=== PATIENT | male | born 1940 | race Hispanic/Latino ===

== ENCOUNTER 2022-03-14 07:19 | Inpatient (IN) | payer MEDICARE ==
[2022-03-13 10:57] LABS: BASOPHILS # (AUTO) 0.1 (0.0-0.1); BASOPHILS % 0.9 % (0.0-1.0); EOSINOPHILS # (AUTO) 0.3 (0.0-0.4); EOSINOPHILS % 3.8 % (0.0-6.0); HEMATOCRIT 36.6 % (38.2-49.6); HEMOGLOBIN 11.8 g/dL (14.0-18.0); LYMPHOCYTES # (AUTO) 1.2 (1.0-3.2); LYMPHOCYTES % 18.3 % (18.0-39.1); MEAN CORPUSCULAR HEMOGLOBIN 28.9 pg (28-32); MEAN CORPUSCULAR HGB CONC 32.2 g/dL (31-35); MEAN CORPUSCULAR VOLUME 89.5 fL (81-99); MONOCYTES # (AUTO) 0.4 (0.2-0.8); MONOCYTES % 5.7 % (4.4-11.3); NEUTROPHILS # (AUTO) 4.7 (2.1-6.9); PLATELET COUNT 207 x10e3/uL (140-360); RED BLOOD COUNT 4.09 x10e6/uL (4.3-5.7); RED CELL DISTRIBUTION WIDTH 13.2 % (11.7-14.4)
[2022-03-13 11:16] LABS: ANION GAP 14.5 mmol/L (8-16); CREATININE, SERUM 0.98 mg/dL (0.72-1.25); POTASSIUM 3.5 mmol/L (3.5-5.1)
[~2022-03-14] VITALS: Ht 180.3 cm; Wt 117.0 kg
[~2022-03-14 07:19] MED LIST: ATORVASTATIN CA20 MG PO; FLOMAX0.4 MG PO; GLIPIZIDE5 MG PO; LOSARTAN POTASS50 MG PO; METOPROLOL SUCC25 MG PO
[2022-03-14] MEDS ORDERED: FLUCONAZOLE 200 MG/100 ML 100 ML IV ONE (07:45)
[2022-03-14] MEDS ORDERED: CEFTRIAXONE 1 GM VIAL ONE (07:45)
[2022-03-14] MEDS ORDERED: GENTAMICIN 80MG/NS 100 ML 200 ML IV ONE (07:45)
[2022-03-14] MEDS ORDERED: SODIUM CHLORIDE 0.9% 1000ML 1,000 ML ONE (07:45)
[2022-03-14] MEDS ORDERED: B&O 60MG R/S 60 MG SUPP PR ONE (08:39)
[2022-03-14] MEDS ORDERED: IOPAMIDOL 610MG/1ML 300 MG/ML VIAL IV ONE (08:39)
[2022-03-14] MEDS ORDERED: POVIDONE IODINE 0.05% 0.05 % ML PO ONE (09:04)
[2022-03-14] MEDS ORDERED: LIDOCAINE HCL 2% LOCAL INJ 5 ML SDV VIAL INJ ONE (09:04)
[2022-03-14] MEDS ORDERED: ONDANSETRON HCL INJ 2MG/ML 2ML 2 MG/ML VIAL ONE ×2 (09:04→12:20)
[2022-03-14] MEDS ORDERED: SEVOFLURANE INHAL SOLN 250 ML PEN BTL ONE (09:04)
[2022-03-14] MEDS ORDERED: FUROSEMIDE INJ 10 MG/ML 4 ML VIAL ONE (09:04)
[2022-03-14] MEDS ORDERED: PROPOFOL IV EMULSION 10 MG/ML 20 ML VIAL ONE (09:04)
[2022-03-14] MEDS ORDERED: FENTANYL CITRATE/PF 100MCG/2 ML INJ ONE (09:39)
[2022-03-14] MEDS ORDERED: Morphine 4mg INJECTION 4 MG/ML INJ ONE (12:20)
[2022-03-14] MEDS ORDERED: HYDROMORPHONE 1MG/1ML INJ ONE (12:27)
[2022-03-14] MEDS ORDERED: HYDRALAZINE HCL 20 MG/ML VIAL ONE (12:39)
[2022-03-14] MEDS ORDERED: PROMETHAZINE HCL (IM) 25 MG/ML VIAL IM ONE (12:55)
[2022-03-14] MEDS ORDERED: PHENAZOPYRIDINE HCL 100 MG TAB PO PRN (13:30)
[2022-03-14] MEDS ORDERED: B&O 60MG R/S 60 MG SUPP PR PRN (13:30)
[2022-03-14] MEDS ORDERED: ACETAMINOPHEN/CODEINE 300MG - 30MG TAB PO PRN (13:30)
[2022-03-14] MEDS ORDERED: DIPHENHYDRAMINE HCL 25 MG CAP PO PRN (13:30)
[2022-03-14] MEDS ORDERED: ONDANSETRON HCL INJ 2MG/ML 2ML 2 MG/ML VIAL IV PRN (13:30)
[2022-03-14 14:07] VITALS: BP 170/96
[2022-03-14 14:58] LABS: BASOPHILS % 0.3 % (0.0-1.0); EOSINOPHILS # (AUTO) 0.1 (0.0-0.4); EOSINOPHILS % 1.1 % (0.0-6.0); HEMATOCRIT 38.3 % (38.2-49.6); HEMOGLOBIN 12.2 g/dL (14.0-18.0); LYMPHOCYTES % 8.8 % (18.0-39.1); MEAN CORPUSCULAR HGB CONC 31.9 g/dL (31-35); MEAN CORPUSCULAR VOLUME 91.2 fL (81-99); MONOCYTES # (AUTO) 0.5 (0.2-0.8); MONOCYTES % 4.9 % (4.4-11.3); NEUTROPHILS # (AUTO) 9.3 (2.1-6.9); NEUTROPHILS % 84.4 % (38.7-80.0); PLATELET COUNT 183 x10e3/uL (140-360); RED CELL DISTRIBUTION WIDTH 13.3 % (11.7-14.4)
[2022-03-14 15:21] LABS: ANION GAP 18.5 mmol/L (8-16); CALCIUM 8.3 mg/dL (8.4-10.2); CREATININE, SERUM 0.97 mg/dL (0.72-1.25); POTASSIUM 3.5 mmol/L (3.5-5.1)
[2022-03-14 16:00] VITALS: BP 155/83
[2022-03-14 16:40] VITALS: BP 155/83
[2022-03-14] MEDS ORDERED: DOCUSATE SODIUM 100 MG CAP PO SCH (17:00)
[2022-03-14] MEDS: SODIUM CHLORIDE 0.9% 1000ML 1,000 ML IV SCH (17:00)
[2022-03-14 20:00] VITALS: BP 158/81
[2022-03-14] MEDS: DOCUSATE SODIUM 100 MG CAP PO SCH (20:21)
[2022-03-14 21:00] VITALS: BP 158/81
[2022-03-15] VITALS (8 sets, daily range): BP systolic 150–184; BP diastolic 77–88
[2022-03-15 07:07] LABS: BASOPHILS # (AUTO) 0.1 (0.0-0.1); BASOPHILS % 0.6 % (0.0-1.0); EOSINOPHILS # (AUTO) 0.2 (0.0-0.4); EOSINOPHILS % 1.7 % (0.0-6.0); HEMATOCRIT 35.5 % (38.2-49.6); LYMPHOCYTES # (AUTO) 1.2 (1.0-3.2); LYMPHOCYTES % 12.8 % (18.0-39.1); MEAN CORPUSCULAR HEMOGLOBIN 29.4 pg (28-32); MEAN CORPUSCULAR HGB CONC 33.8 g/dL (31-35); MONOCYTES # (AUTO) 0.9 (0.2-0.8); MONOCYTES % 9.1 % (4.4-11.3); NEUTROPHILS % 75.5 % (38.7-80.0); PLATELET COUNT 187 x10e3/uL (140-360); RED BLOOD COUNT 4.08 x10e6/uL (4.3-5.7); RED CELL DISTRIBUTION WIDTH 13.6 % (11.7-14.4)
[2022-03-15 07:37] LABS: ANION GAP 18.7 mmol/L (8-16); CALCIUM 8.2 mg/dL (8.4-10.2); CREATININE, SERUM 1.08 mg/dL (0.72-1.25); POTASSIUM 3.7 mmol/L (3.5-5.1)
[2022-03-15] MEDS: DOCUSATE SODIUM 100 MG CAP PO SCH ×2 (09:00→21:00)
[2022-03-15] MEDS: SODIUM CHLORIDE 0.9% 1000ML 1,000 ML IV SCH (09:30)
[2022-03-15] MEDS ORDERED: HYDRALAZINE HCL 20 MG/ML VIAL IV PRN (09:45)
[2022-03-15] MEDS ORDERED: DEXTROSE 50% SYRINGE 50 ML IV PRN (09:45)
[2022-03-15] MEDS: FLUCONAZOLE 200 MG/100 ML 100 ML IV SCH (10:00)
[2022-03-15] MEDS ORDERED: ONDANSETRON HCL INJ 2MG/ML 2ML 2 MG/ML VIAL IV PRN (10:00)
[2022-03-15] MEDS: TAMSULOSIN HCL 0.4 MG CAP PO SCH (10:30)
[2022-03-15] MEDS ORDERED: NIFEDIPINE CR 30 MG TAB PO ONE (10:30)
[2022-03-15] MEDS: METOPROLOL SUCCINATE 25 MG TAB XL PO SCH ×2 (10:52→17:54)
[2022-03-15] MEDS: INSULIN LISPRO 100 UNIT/1 ML 3ML VIAL SQ SCH ×3 (11:30→21:00)
[2022-03-15] MEDS: ATORVASTATIN 20 MG TAB PO SCH (21:00)
[2022-03-16] VITALS (8 sets, daily range): BP systolic 127–157; BP diastolic 71–84
[2022-03-16 05:23] LABS: BASOPHILS % 0.5 % (0.0-1.0); EOSINOPHILS # (AUTO) 0.2 (0.0-0.4); EOSINOPHILS % 2.8 % (0.0-6.0); HEMATOCRIT 31.1 % (38.2-49.6); HEMOGLOBIN 10.7 g/dL (14.0-18.0); LYMPHOCYTES # (AUTO) 1.2 (1.0-3.2); LYMPHOCYTES % 16.4 % (18.0-39.1); MEAN CORPUSCULAR HGB CONC 34.4 g/dL (31-35); MEAN CORPUSCULAR VOLUME 84.3 fL (81-99); MONOCYTES # (AUTO) 0.6 (0.2-0.8); MONOCYTES % 7.3 % (4.4-11.3); NEUTROPHILS # (AUTO) 5.5 (2.1-6.9); NEUTROPHILS % 72.5 % (38.7-80.0); PLATELET COUNT 190 x10e3/uL (140-360); RED BLOOD COUNT 3.69 x10e6/uL (4.3-5.7); RED CELL DISTRIBUTION WIDTH 13.5 % (11.7-14.4)
[2022-03-16] MEDS: SODIUM CHLORIDE 0.9% 1000ML 1,000 ML IV SCH (05:30)
[2022-03-16] MEDS: NIFEDIPINE CR 30 MG TAB PO SCH ×2 (05:31→09:05)
[2022-03-16 05:40] LABS: ANION GAP 16.3 mmol/L (8-16); CALCIUM 8.2 mg/dL (8.4-10.2); CREATININE, SERUM 0.99 mg/dL (0.72-1.25); POTASSIUM 3.3 mmol/L (3.5-5.1)
[2022-03-16] MEDS: INSULIN LISPRO 100 UNIT/1 ML 3ML VIAL SQ SCH ×4 (08:00→21:00)
[2022-03-16] MEDS: TAMSULOSIN HCL 0.4 MG CAP PO SCH (09:04)
[2022-03-16] MEDS: LOSARTAN POTASSIUM 25 MG TAB PO SCH (09:04)
[2022-03-16] MEDS: GLIPIZIDE 5 MG TAB PO SCH (09:05)
[2022-03-16] MEDS: METOPROLOL SUCCINATE 25 MG TAB XL PO SCH ×2 (09:06→17:00)
[2022-03-16] MEDS: DOCUSATE SODIUM 100 MG CAP PO SCH ×2 (09:06→21:00)
[2022-03-16] MEDS ORDERED: POTASSIUM CHLORIDE 10MEQ EA PO ONE (10:00)
[2022-03-16] MEDS: FLUCONAZOLE 200 MG/100 ML 100 ML IV SCH (10:30)
[2022-03-16] MEDS ORDERED: IOPAMIDOL 370 MG/ML 100 ML INFUS..BTL INJ ONE (14:43)
[2022-03-16] MEDS ORDERED: SODIUM CHLORIDE 0.9% 100 ML ONE (14:43)
[2022-03-16] MEDS: ATORVASTATIN 20 MG TAB PO SCH (21:00)
[2022-03-17] VITALS (8 sets, daily range): BP systolic 135–155; BP diastolic 65–75
[2022-03-17 05:46] LABS: BASOPHILS # (AUTO) 0.1 (0.0-0.1); BASOPHILS % 0.7 % (0.0-1.0); EOSINOPHILS # (AUTO) 0.3 (0.0-0.4); EOSINOPHILS % 4.6 % (0.0-6.0); HEMATOCRIT 32.2 % (38.2-49.6); HEMOGLOBIN 10.9 g/dL (14.0-18.0); LYMPHOCYTES # (AUTO) 1.2 (1.0-3.2); LYMPHOCYTES % 17.2 % (18.0-39.1); MEAN CORPUSCULAR HGB CONC 33.9 g/dL (31-35); MEAN CORPUSCULAR VOLUME 85.6 fL (81-99); MONOCYTES # (AUTO) 0.5 (0.2-0.8); MONOCYTES % 6.9 % (4.4-11.3); PLATELET COUNT 203 x10e3/uL (140-360); RED BLOOD COUNT 3.76 x10e6/uL (4.3-5.7); RED CELL DISTRIBUTION WIDTH 13.6 % (11.7-14.4)
[2022-03-17 06:12] LABS: ANION GAP 11.5 mmol/L (8-16); CALCIUM 8.3 mg/dL (8.4-10.2); CREATININE, SERUM 0.95 mg/dL (0.72-1.25); POTASSIUM 3.5 mmol/L (3.5-5.1)
[2022-03-17] MEDS: INSULIN LISPRO 100 UNIT/1 ML 3ML VIAL SQ SCH ×4 (08:15→20:10)
[2022-03-17] MEDS: GLIPIZIDE 5 MG TAB PO SCH (08:15)
[2022-03-17] MEDS: NIFEDIPINE CR 30 MG TAB PO SCH (08:51)
[2022-03-17] MEDS: TAMSULOSIN HCL 0.4 MG CAP PO SCH (08:51)
[2022-03-17] MEDS: METOPROLOL SUCCINATE 25 MG TAB XL PO SCH ×2 (08:51→18:00)
[2022-03-17] MEDS: DOCUSATE SODIUM 100 MG CAP PO SCH ×2 (08:51→20:50)
[2022-03-17] MEDS: LOSARTAN POTASSIUM 25 MG TAB PO SCH (08:52)
[2022-03-17] MEDS ORDERED: ONDANSETRON HCL 4 MG ORAL DISINTEGRATING TAB PO PRN (09:30)
[2022-03-17] MEDS: FLUCONAZOLE 200 MG/100 ML 100 ML IV SCH (10:00)
[2022-03-17] MEDS: ATORVASTATIN 20 MG TAB PO SCH (20:51)
[2022-03-18] VITALS: BP 133/76
[2022-03-18 04:00] VITALS: BP 141/73
[2022-03-18 05:35] LABS: BASOPHILS # (AUTO) 0.1 (0.0-0.1); BASOPHILS % 0.7 % (0.0-1.0); EOSINOPHILS # (AUTO) 0.4 (0.0-0.4); EOSINOPHILS % 4.6 % (0.0-6.0); HEMATOCRIT 35.3 % (38.2-49.6); LYMPHOCYTES # (AUTO) 1.3 (1.0-3.2); LYMPHOCYTES % 15.9 % (18.0-39.1); MEAN CORPUSCULAR HEMOGLOBIN 29.5 pg (28-32); MEAN CORPUSCULAR VOLUME 86.7 fL (81-99); MONOCYTES # (AUTO) 0.5 (0.2-0.8); MONOCYTES % 5.7 % (4.4-11.3); NEUTROPHILS # (AUTO) 6.1 (2.1-6.9); NEUTROPHILS % 72.7 % (38.7-80.0); PLATELET COUNT 237 x10e3/uL (140-360); RED BLOOD COUNT 4.07 x10e6/uL (4.3-5.7); RED CELL DISTRIBUTION WIDTH 13.6 % (11.7-14.4)
[2022-03-18 06:13] LABS: ANION GAP 12.5 mmol/L (8-16); CREATININE, SERUM 1.04 mg/dL (0.72-1.25); POTASSIUM 3.5 mmol/L (3.5-5.1)
[2022-03-18] MEDS: INSULIN LISPRO 100 UNIT/1 ML 3ML VIAL SQ SCH ×3 (07:30→16:30)
[2022-03-18] MEDS: GLIPIZIDE 5 MG TAB PO SCH (07:46)
[2022-03-18 08:27] VITALS: BP 111/59
[2022-03-18] MEDS: DOCUSATE SODIUM 100 MG CAP PO SCH (08:44)
[2022-03-18] MEDS: LOSARTAN POTASSIUM 25 MG TAB PO SCH (08:45)
[2022-03-18] MEDS: TAMSULOSIN HCL 0.4 MG CAP PO SCH (08:45)
[2022-03-18] MEDS: NIFEDIPINE CR 30 MG TAB PO SCH (08:46)
[2022-03-18] MEDS: METOPROLOL SUCCINATE 25 MG TAB XL PO SCH ×2 (08:46→16:30)
[2022-03-18] MEDS ORDERED: POTASSIUM CHLORIDE 10MEQ EA PO ONE (09:30)
[2022-03-18] MEDS ORDERED: FUROSEMIDE INJ 10 MG/ML 4 ML VIAL IV ONE (09:30)
[2022-03-18] MEDS ORDERED: FLUCONAZOLE 100 MG TAB PO SCH (10:00)
[2022-03-18 11:53] VITALS: BP 133/66
[2022-03-18 16:09] VITALS: BP 132/73
== END 2022-03-18 17:37 | disposition home or self-care (01) | DRG 713 ==
LOC: OR 07:19 → PACU V 13:19 → MED/SURG 14:07
PROVIDERS: ADMIT Internal Medicine; ATTEND Internal Medicine
PROC: 0V508ZZ Destruction of Prostate, Via Natural or Artificial Opening Endoscopic (ICD-10-PCS; principal; 2022-03-14 09:46)
PROC: BT141ZZ Fluoroscopy of Kidneys, Ureters and Bladder using Low Osmolar Contrast (ICD-10-PCS; 2022-03-14 09:46)
DX: N40.1 Benign prostatic hyperplasia with lower urinary tract symptoms (principal); B37.49 Other urogenital candidiasis; L03.314 Cellulitis of groin; T85.79XA Infection and inflammatory reaction due to other internal prosthetic devices, implants and grafts, initial encounter; N13.8 Other obstructive and reflux uropathy; I83.009 Varicose veins of unspecified lower extremity with ulcer of unspecified site; N32.3 Diverticulum of bladder; I89.0 Lymphedema, not elsewhere classified; I10 Essential (primary) hypertension; E78.5 Hyperlipidemia, unspecified; E11.9 Type 2 diabetes mellitus without complications; Z87.820 Personal history of traumatic brain injury; Z90.49 Acquired absence of other specified parts of digestive tract; E66.9 Obesity, unspecified; N28.89 Other specified disorders of kidney and ureter; Z87.891 Personal history of nicotine dependence; Z68.35 Body mass index [BMI] 35.0-35.9, adult; Z20.822 Contact with and (suspected) exposure to COVID-19
CPT/HCPCS: 36415; 71046; 74178; 74420; 80048; 82948; 83735; 85025; 88304; 88305; 93005; 94799; C1758; J0360; J0696; J1170; J1450; J1580; J1940; J2001; J2270; J2405; J2543; J2550; J3010; J7030; J7050; Q9967

== ENCOUNTER 2022-06-30 10:28 | Inpatient (IN) | payer MEDICARE ==
[2022-06-27 10:42] LABS: BASOPHILS % 0.7 % (0.0-1.0); EOSINOPHILS # (AUTO) 0.2 (0.0-0.4); EOSINOPHILS % 3.5 % (0.0-6.0); HEMATOCRIT 37.3 % (38.2-49.6); HEMOGLOBIN 11.5 g/dL (14.0-18.0); LYMPHOCYTES % 17.5 % (18.0-39.1); MEAN CORPUSCULAR HEMOGLOBIN 27.8 pg (28-32); MEAN CORPUSCULAR HGB CONC 30.8 g/dL (31-35); MEAN CORPUSCULAR VOLUME 90.3 fL (81-99); MONOCYTES # (AUTO) 0.4 (0.2-0.8); MONOCYTES % 5.9 % (4.4-11.3); NEUTROPHILS # (AUTO) 4.3 (2.1-6.9); NEUTROPHILS % 72.1 % (38.7-80.0); PLATELET COUNT 146 x10e3/uL (140-360); RED BLOOD COUNT 4.13 x10e6/uL (4.3-5.7); RED CELL DISTRIBUTION WIDTH 13.5 % (11.7-14.4)
[2022-06-27 11:03] LABS: ALANINE AMINOTRANSFERASE 12 IU/L (0-55); ALBUMIN 3.4 g/dL (3.5-5.0); ALBUMIN/GLOBULIN RATIO 1.3 (0.8-2.0); ALKALINE PHOSPHATASE 77 IU/L (40-150); ANION GAP 11.7 mmol/L (8-16); BLOOD UREA NITROGEN 13 mg/dL (7-26); BUN/CREATININE RATIO 13 (6-25); CALCIUM 8.8 mg/dL (8.4-10.2); CARBON DIOXIDE 26 mmol/L (22-29); CHLORIDE 109 mmol/L (98-107); CREATININE, SERUM 1.02 mg/dL (0.72-1.25); GLUCOSE 99 mg/dL (74-118); POTASSIUM 3.7 mmol/L (3.5-5.1); SODIUM 143 mmol/L (136-145)
[~2022-06-30] VITALS: Ht 180.3 cm; Wt 125.2 kg
[~2022-06-30 10:28] MED LIST changes: +AUGMENTIN 500-1 EACH PO; +FINASTERIDE5 MG PO
[2022-06-30] MEDS ORDERED: CEFAZOLIN SODIUM 2 GM ONE (11:36)
[2022-06-30] MEDS ORDERED: SODIUM CHLORIDE 0.9% 100 ML ONE (12:29)
[2022-06-30] MEDS ORDERED: IOPAMIDOL 610MG/1ML 300 MG/ML VIAL IV ONE (13:15)
[2022-06-30] MEDS ORDERED: FENTANYL CITRATE/PF 100MCG/2 ML INJ ONE (13:27)
[2022-06-30] MEDS ORDERED: NALOXONE HCL INJ 0.4 MG/ML AMP IV PRN (13:30)
[2022-06-30] MEDS ORDERED: DIPHENHYDRAMINE HCL INJ 50 MG/ML VIAL IM PRN (13:30)
[2022-06-30] MEDS ORDERED: MORPHINE SULFATE 1 MG/ML 30ML PCA IV PRN (13:30)
[2022-06-30] MEDS ORDERED: ONDANSETRON HCL INJ 2MG/ML 2ML 2 MG/ML VIAL IV PRN (13:30)
[2022-06-30] MEDS: SODIUM CHLORIDE 0.9% 250ML IRRIG IR SCH ×3 (13:30→20:27)
[2022-06-30] MEDS: SODIUM CHLORIDE 0.9% 1000ML 1,000 ML IV SCH ×2 (13:30→21:31)
[2022-06-30] MEDS ORDERED: MANNITOL 20 % 500 ML BAG IV ONE (15:58)
[2022-06-30] MEDS ORDERED: ONDANSETRON HCL INJ 2MG/ML 2ML 2 MG/ML VIAL ONE (17:30)
[2022-06-30] MEDS ORDERED: GLYCOPYRROLATE INJ 0.2 MG/ML VIAL ONE (17:30)
[2022-06-30] MEDS ORDERED: POVIDONE IODINE 0.05% 0.05 % ML PO ONE (17:30)
[2022-06-30] MEDS ORDERED: DEXAMETHASONE SOD PHOS INJ 4 MG/ML SDV ONE (17:30)
[2022-06-30] MEDS ORDERED: PROPOFOL IV EMULSION 10 MG/ML 20 ML VIAL ONE (17:30)
[2022-06-30] MEDS ORDERED: ROCURONIUM BROMIDE 10 MG/ML 5ML VIAL IV ONE (17:30)
[2022-06-30] MEDS ORDERED: PHENYLEPHRINE HCL 1% 10 MG/ML VIAL ONE (17:30)
[2022-06-30] MEDS ORDERED: HYDRALAZINE HCL 20 MG/ML VIAL ONE (17:30)
[2022-06-30] MEDS ORDERED: LIDOCAINE HCL 2% LOCAL INJ 5 ML SDV VIAL INJ ONE (17:30)
[2022-06-30] MEDS ORDERED: NEOSTIGMINE 1 MG/ML 10ML VIAL ONE (17:30)
[2022-06-30] MEDS ORDERED: SEVOFLURANE INHAL SOLN 250 ML PEN BTL ONE (17:30)
[2022-06-30] MEDS ORDERED: LABETALOL HCL 5 MG/ML 20ML VIAL ONE (17:30)
[2022-06-30] MEDS ORDERED: MORPHINE SULFATE 1 MG/ML 30ML PCA ONE (17:50)
[2022-06-30 18:00] LABS: BASOPHILS % 0.2 % (0.0-1.0); EOSINOPHILS # (AUTO) 0.1 (0.0-0.4); EOSINOPHILS % 0.8 % (0.0-6.0); HEMATOCRIT 40.9 % (38.2-49.6); HEMOGLOBIN 12.5 g/dL (14.0-18.0); LYMPHOCYTES # (AUTO) 1.3 (1.0-3.2); LYMPHOCYTES % 13.1 % (18.0-39.1); MEAN CORPUSCULAR HEMOGLOBIN 28.2 pg (28-32); MEAN CORPUSCULAR HGB CONC 30.6 g/dL (31-35); MEAN CORPUSCULAR VOLUME 92.3 fL (81-99); MONOCYTES # (AUTO) 0.4 (0.2-0.8); MONOCYTES % 3.7 % (4.4-11.3); NEUTROPHILS % 81.5 % (38.7-80.0); PLATELET COUNT 130 x10e3/uL (140-360); RED BLOOD COUNT 4.43 x10e6/uL (4.3-5.7); RED CELL DISTRIBUTION WIDTH 13.6 % (11.7-14.4)
[2022-06-30 18:07] LABS: ANION GAP 12.3 mmol/L (8-16); CALCIUM 8.3 mg/dL (8.4-10.2); CREATININE, SERUM 1.01 mg/dL (0.72-1.25); POTASSIUM 3.3 mmol/L (3.5-5.1)
[2022-06-30] MEDS ORDERED: SUGAMMADEX SODIUM 200 MG/2 ML VIAL IV ONE (18:10)
[2022-06-30] MEDS: ACETAMINOPHEN 1000 MG/100 ML IV PRN (19:13)
[2022-06-30 19:31] VITALS: BP 179/79
[2022-06-30 19:52] VITALS: BP 179/79
[2022-06-30 20:00] VITALS: BP 169/78
[2022-06-30 21:00] VITALS: BP 170/78
[2022-06-30 22:00] VITALS: BP 155/70
[2022-06-30 23:00] VITALS: BP 170/70
[2022-07-01] VITALS (39 sets, daily range): BP systolic 148–205; BP diastolic 62–138
[2022-07-01] MEDS: SODIUM CHLORIDE 0.9% 250ML IRRIG IR SCH ×3 (01:06→09:30)
[2022-07-01 05:39] LABS: BASOPHILS % 0.3 % (0.0-1.0); HEMATOCRIT 36.4 % (38.2-49.6); LYMPHOCYTES # (AUTO) 0.4 (1.0-3.2); LYMPHOCYTES % 5.2 % (18.0-39.1); MEAN CORPUSCULAR HEMOGLOBIN 27.8 pg (28-32); MEAN CORPUSCULAR VOLUME 84.5 fL (81-99); MONOCYTES # (AUTO) 0.5 (0.2-0.8); MONOCYTES % 7.2 % (4.4-11.3); NEUTROPHILS # (AUTO) 6.6 (2.1-6.9); NEUTROPHILS % 86.9 % (38.7-80.0); PLATELET COUNT 135 x10e3/uL (140-360); RED BLOOD COUNT 4.31 x10e6/uL (4.3-5.7); RED CELL DISTRIBUTION WIDTH 13.9 % (11.7-14.4)
[2022-07-01] MEDS ORDERED: LOSARTAN POTASSIUM 25 MG TAB PO SCH (06:00)
[2022-07-01] MEDS ORDERED: METOPROLOL SUCCINATE 25 MG TAB XL PO SCH ×2 (06:00→09:15)
[2022-07-01 06:01] LABS: ANION GAP 17.5 mmol/L (8-16); CALCIUM 8.4 mg/dL (8.4-10.2); CREATININE, SERUM 1.44 mg/dL (0.72-1.25); POTASSIUM 3.5 mmol/L (3.5-5.1)
[2022-07-01] MEDS: HYDRALAZINE HCL 20 MG/ML VIAL IV PRN ×4 (06:52→21:37)
[2022-07-01] MEDS: SODIUM CHLORIDE 0.9% 1000ML 1,000 ML IV SCH ×2 (08:30→18:24)
[2022-07-01] MEDS ORDERED: DEXTROSE 50% SYRINGE 50 ML IV PRN ×2 (09:30)
[2022-07-01] MEDS ORDERED: ONDANSETRON HCL INJ 2MG/ML 2ML 2 MG/ML VIAL IV PRN (09:30)
[2022-07-01] MEDS: ACETAMINOPHEN 1000 MG/100 ML IV PRN ×2 (11:12→23:23)
[2022-07-01] MEDS: INSULIN LISPRO 100 UNIT/1 ML 3ML VIAL SQ SCH ×3 (11:29→20:54)
[2022-07-01] MEDS ORDERED: INSULIN LISPRO 100 UNIT/1 ML 3ML VIAL SQ SCH (11:30)
[2022-07-01] MEDS: IPRATROPIUM BROMIDE 0.02% 2.5 ML NEB NEB SCH ×2 (13:00→19:00)
[2022-07-01] MEDS ORDERED: CLONIDINE HCL 0.1 MG/24 HR 1 EA PATCH TOP SCH (15:00)
[2022-07-01] MEDS: Morphine 2mg Syringe 2 MG/ML SYR IV PRN ×2 (15:39→19:53)
[2022-07-01] MEDS: METOPROLOL SUCCINATE 25 MG TAB XL PO SCH (15:48)
[2022-07-01] MEDS ORDERED: HETASTARCH 6%/NACL INJ 500 ML IV ONE ×2 (16:00→18:15)
[2022-07-02] VITALS (41 sets, daily range): BP systolic 146–215; BP diastolic 57–92
[2022-07-02] MEDS: IPRATROPIUM BROMIDE 0.02% 2.5 ML NEB NEB SCH ×4 (01:00→19:30)
[2022-07-02] MEDS: Morphine 2mg Syringe 2 MG/ML SYR IV PRN (01:15)
[2022-07-02] MEDS: HYDRALAZINE HCL 20 MG/ML VIAL IV PRN ×3 (04:02→12:13)
[2022-07-02] MEDS: SODIUM CHLORIDE 0.9% 1000ML 1,000 ML IV SCH ×3 (04:50→14:47)
[2022-07-02 05:55] LABS: BASOPHILS % 0.2 % (0.0-1.0); EOSINOPHILS % 0.4 % (0.0-6.0); HEMATOCRIT 33.6 % (38.2-49.6); LYMPHOCYTES % 12.4 % (18.0-39.1); MEAN CORPUSCULAR HEMOGLOBIN 28.2 pg (28-32); MEAN CORPUSCULAR HGB CONC 32.7 g/dL (31-35); MEAN CORPUSCULAR VOLUME 86.2 fL (81-99); MONOCYTES # (AUTO) 0.6 (0.2-0.8); MONOCYTES % 6.7 % (4.4-11.3); NEUTROPHILS # (AUTO) 6.7 (2.1-6.9); NEUTROPHILS % 79.7 % (38.7-80.0); PLATELET COUNT 156 x10e3/uL (140-360); RED CELL DISTRIBUTION WIDTH 14.8 % (11.7-14.4)
[2022-07-02 06:31] LABS: ALBUMIN 2.5 g/dL (3.5-5.0); ALBUMIN/GLOBULIN RATIO 0.9 (0.8-2.0); ALKALINE PHOSPHATASE 63 IU/L (40-150); ANION GAP 14.4 mmol/L (8-16); BLOOD UREA NITROGEN 24 mg/dL (7-26); BUN/CREATININE RATIO 13 (6-25); CALCIUM 7.7 mg/dL (8.4-10.2); CARBON DIOXIDE 21 mmol/L (22-29); CHLORIDE 112 mmol/L (98-107); CREATININE, SERUM 1.92 mg/dL (0.72-1.25); GLUCOSE 122 mg/dL (74-118); POTASSIUM 3.4 mmol/L (3.5-5.1); SODIUM 144 mmol/L (136-145)
[2022-07-02 06:32] LABS: ALANINE AMINOTRANSFERASE < 6 IU/L (0-55)
[2022-07-02] MEDS: INSULIN LISPRO 100 UNIT/1 ML 3ML VIAL SQ SCH ×4 (07:01→20:18)
[2022-07-02] MEDS: METOPROLOL SUCCINATE 25 MG TAB XL PO SCH ×2 (09:06→17:04)
[2022-07-02] MEDS: NIFEDIPINE CR 30 MG TAB PO SCH (09:07)
[2022-07-02] MEDS: LOSARTAN POTASSIUM 25 MG TAB PO SCH (15:03)
[2022-07-02] MEDS ORDERED: LABETALOL HCL 5 MG/ML 20ML VIAL IV ONE (15:41)
[2022-07-02] MEDS ORDERED: LABETALOL HCL 5 MG/ML 20ML VIAL IV PRN (15:45)
[2022-07-03] VITALS (22 sets, daily range): BP systolic 137–191; BP diastolic 61–150
[2022-07-03] MEDS: SODIUM CHLORIDE 0.9% 1000ML 1,000 ML IV SCH ×4 (01:53→19:41)
[2022-07-03] MEDS: IPRATROPIUM BROMIDE 0.02% 2.5 ML NEB NEB SCH ×4 (02:45→19:45)
[2022-07-03 06:09] LABS: BASOPHILS % 0.3 % (0.0-1.0); EOSINOPHILS # (AUTO) 0.1 (0.0-0.4); EOSINOPHILS % 0.9 % (0.0-6.0); HEMOGLOBIN 9.9 g/dL (14.0-18.0); LYMPHOCYTES # (AUTO) 0.7 (1.0-3.2); LYMPHOCYTES % 9.9 % (18.0-39.1); MEAN CORPUSCULAR HEMOGLOBIN 27.7 pg (28-32); MEAN CORPUSCULAR VOLUME 92.2 fL (81-99); MONOCYTES # (AUTO) 0.5 (0.2-0.8); MONOCYTES % 6.1 % (4.4-11.3); NEUTROPHILS # (AUTO) 6.2 (2.1-6.9); NEUTROPHILS % 82.4 % (38.7-80.0); PLATELET COUNT 141 x10e3/uL (140-360); RED BLOOD COUNT 3.58 x10e6/uL (4.3-5.7); RED CELL DISTRIBUTION WIDTH 14.8 % (11.7-14.4)
[2022-07-03 06:25] LABS: ANION GAP 13.1 mmol/L (8-16); CALCIUM 7.5 mg/dL (8.4-10.2); CREATININE, SERUM 2.16 mg/dL (0.72-1.25); POTASSIUM 3.1 mmol/L (3.5-5.1)
[2022-07-03] MEDS: INSULIN LISPRO 100 UNIT/1 ML 3ML VIAL SQ SCH ×4 (07:59→20:19)
[2022-07-03] MEDS: LOSARTAN POTASSIUM 25 MG TAB PO SCH (08:00)
[2022-07-03] MEDS: METOPROLOL SUCCINATE 25 MG TAB XL PO SCH ×2 (08:00→17:05)
[2022-07-03] MEDS: NIFEDIPINE CR 30 MG TAB PO SCH (08:01)
[2022-07-03] MEDS ORDERED: NON-FORMULARY MEDICATION (Losartan Potassium 50 MG) PO SCH (09:00)
[2022-07-03] MEDS: DOCUSATE SODIUM 100 MG CAP PO SCH (17:05)
[2022-07-03] MEDS: POTASSIUM CHLORIDE 20MEQ/100ML 100 ML IV PRN (17:14)
[2022-07-03 19:33] LABS: CLARITY,URINE SL CLOUDY (CLEAR); COLOR,URINE YELLOW (YELLOW); KETONES,URINE 1+ (NEGATIVE); LEUKOCYTE ESTERASE ,URINE SMALL (NEGATIVE); NITRITE,URINE NEGATIVE (NEGATIVE); PROTEIN,URINE DIPSTICK >=300 (NEGATIVE)
[2022-07-03 19:34] LABS: URINE UROBILINOGEN 0.2 mg/dL (0.2 - 1)
[2022-07-03] MEDS: HYDRALAZINE HCL 25 MG TAB PO SCH (20:07)
[2022-07-03 20:09] LABS: BACTERIA,URINE MANY /HPF; EOSINOPHIL SMEAR,URINE NONE SEEN (NONE SEEN); RBC,URINE >50 /HPF (0-5); WBC,URINE (MAN) >50 /HPF (0-5)
[2022-07-03] MEDS: MELATONIN 5 MG TABLET PO SCH (23:50)
[2022-07-04] VITALS (23 sets, daily range): BP systolic 132–192; BP diastolic 68–93
[2022-07-04] MEDS: IPRATROPIUM BROMIDE 0.02% 2.5 ML NEB NEB SCH ×4 (00:02→19:55)
[2022-07-04] MEDS: HYDRALAZINE HCL 20 MG/ML VIAL IV PRN (07:15)
[2022-07-04 08:03] LABS: ANION GAP 15.5 mmol/L (8-16); CALCIUM 8.1 mg/dL (8.4-10.2); CREATININE, SERUM 2.01 mg/dL (0.72-1.25); POTASSIUM 3.5 mmol/L (3.5-5.1)
[2022-07-04] MEDS: INSULIN LISPRO 100 UNIT/1 ML 3ML VIAL SQ SCH ×4 (08:28→20:49)
[2022-07-04] MEDS: HYDRALAZINE HCL 25 MG TAB PO SCH ×3 (08:28→20:26)
[2022-07-04] MEDS: NIFEDIPINE CR 30 MG TAB PO SCH (08:29)
[2022-07-04] MEDS: METOPROLOL SUCCINATE 25 MG TAB XL PO SCH ×2 (08:29→16:58)
[2022-07-04] MEDS: DOCUSATE SODIUM 100 MG CAP PO SCH ×2 (08:30→16:57)
[2022-07-04 08:54] LABS: BASOPHILS # (AUTO) 0.1 (0.0-0.1); BASOPHILS % 0.5 % (0.0-1.0); EOSINOPHILS # (AUTO) 0.3 (0.0-0.4); EOSINOPHILS % 2.7 % (0.0-6.0); HEMATOCRIT 37.3 % (38.2-49.6); HEMOGLOBIN 11.5 g/dL (14.0-18.0); LYMPHOCYTES # (AUTO) 0.7 (1.0-3.2); LYMPHOCYTES % 7.2 % (18.0-39.1); MEAN CORPUSCULAR HEMOGLOBIN 27.8 pg (28-32); MEAN CORPUSCULAR HGB CONC 30.8 g/dL (31-35); MEAN CORPUSCULAR VOLUME 90.3 fL (81-99); MONOCYTES # (AUTO) 0.6 (0.2-0.8); MONOCYTES % 6.5 % (4.4-11.3); NEUTROPHILS # (AUTO) 7.7 (2.1-6.9); NEUTROPHILS % 82.6 % (38.7-80.0); PLATELET COUNT 203 x10e3/uL (140-360); RED BLOOD COUNT 4.13 x10e6/uL (4.3-5.7); RED CELL DISTRIBUTION WIDTH 14.6 % (11.7-14.4)
[2022-07-04] MEDS: MELATONIN 5 MG TABLET PO SCH (20:26)
[2022-07-05] VITALS (9 sets, daily range): BP systolic 159–179; BP diastolic 74–90
[2022-07-05] MEDS: IPRATROPIUM BROMIDE 0.02% 2.5 ML NEB NEB SCH ×4 (01:47→19:40)
[2022-07-05] MEDS: SODIUM CHLORIDE 0.9% 1000ML 1,000 ML IV SCH (03:05)
[2022-07-05 07:33] LABS: BASOPHILS % 0.3 % (0.0-1.0); EOSINOPHILS # (AUTO) 0.4 (0.0-0.4); EOSINOPHILS % 6.3 % (0.0-6.0); HEMATOCRIT 30.2 % (38.2-49.6); LYMPHOCYTES # (AUTO) 0.7 (1.0-3.2); LYMPHOCYTES % 11.8 % (18.0-39.1); MEAN CORPUSCULAR HEMOGLOBIN 27.9 pg (28-32); MEAN CORPUSCULAR HGB CONC 33.1 g/dL (31-35); MEAN CORPUSCULAR VOLUME 84.4 fL (81-99); MONOCYTES # (AUTO) 0.5 (0.2-0.8); MONOCYTES % 7.9 % (4.4-11.3); NEUTROPHILS # (AUTO) 4.3 (2.1-6.9); NEUTROPHILS % 72.8 % (38.7-80.0); PLATELET COUNT 156 x10e3/uL (140-360); RED BLOOD COUNT 3.58 x10e6/uL (4.3-5.7); RED CELL DISTRIBUTION WIDTH 14.6 % (11.7-14.4)
[2022-07-05 08:02] LABS: ANION GAP 13.1 mmol/L (8-16); CALCIUM 7.6 mg/dL (8.4-10.2); CREATININE, SERUM 1.72 mg/dL (0.72-1.25); POTASSIUM 3.1 mmol/L (3.5-5.1)
[2022-07-05] MEDS: INSULIN LISPRO 100 UNIT/1 ML 3ML VIAL SQ SCH ×4 (08:30→21:00)
[2022-07-05] MEDS: HYDRALAZINE HCL 25 MG TAB PO SCH ×3 (08:59→20:49)
[2022-07-05] MEDS: DOCUSATE SODIUM 100 MG CAP PO SCH ×2 (08:59→16:48)
[2022-07-05] MEDS: NIFEDIPINE CR 30 MG TAB PO SCH (09:00)
[2022-07-05] MEDS: METOPROLOL SUCCINATE 25 MG TAB XL PO SCH ×2 (09:00→16:53)
[2022-07-05] MEDS: POTASSIUM CHLORIDE 20MEQ/100ML 100 ML IV PRN (09:01)
[2022-07-05 18:51] LABS: CREATININE,URINE RANDOM 113.67 mg/dL (63-166); TOTAL PROTEIN 24HR, URINE 1824.1 mg/24hr (50-100); TOTAL PROTEIN, URINE 197.2 mg/dL (1-14)
[2022-07-05] MEDS: MELATONIN 5 MG TABLET PO SCH (20:48)
[2022-07-06] MEDS: IPRATROPIUM BROMIDE 0.02% 2.5 ML NEB NEB SCH ×4 (00:27→19:48)
[2022-07-06 04:00] VITALS: BP 171/84
[2022-07-06] MEDS: INSULIN LISPRO 100 UNIT/1 ML 3ML VIAL SQ SCH ×4 (07:30→20:34)
[2022-07-06 08:27] VITALS: BP 170/85
[2022-07-06] MEDS: DOCUSATE SODIUM 100 MG CAP PO SCH ×2 (09:22→17:02)
[2022-07-06] MEDS: HYDRALAZINE HCL 25 MG TAB PO SCH ×3 (09:22→20:23)
[2022-07-06] MEDS: METOPROLOL SUCCINATE 25 MG TAB XL PO SCH ×2 (09:23→17:02)
[2022-07-06] MEDS: NIFEDIPINE CR 30 MG TAB PO SCH (09:23)
[2022-07-06 10:11] LABS: ANION GAP 13.1 mmol/L (8-16); CREATININE, SERUM 1.8 mg/dL (0.72-1.25); POTASSIUM 3.1 mmol/L (3.5-5.1)
[2022-07-06] MEDS: POTASSIUM CHLORIDE 20MEQ/100ML 100 ML IV PRN (10:37)
[2022-07-06 12:32] VITALS: BP 154/83
[2022-07-06 13:34] VITALS: BP 154/83
[2022-07-06 16:35] VITALS: BP 182/95
[2022-07-06 20:00] VITALS: BP 185/78
[2022-07-06] MEDS: MELATONIN 5 MG TABLET PO SCH (20:24)
[2022-07-07] VITALS (10 sets, daily range): BP systolic 151–186; BP diastolic 63–94
[2022-07-07] MEDS: IPRATROPIUM BROMIDE 0.02% 2.5 ML NEB NEB SCH ×4 (00:40→19:50)
[2022-07-07 06:16] LABS: BASOPHILS % 0.5 % (0.0-1.0); EOSINOPHILS # (AUTO) 0.3 (0.0-0.4); EOSINOPHILS % 4.1 % (0.0-6.0); HEMATOCRIT 37.4 % (38.2-49.6); HEMOGLOBIN 11.3 g/dL (14.0-18.0); LYMPHOCYTES # (AUTO) 0.7 (1.0-3.2); MEAN CORPUSCULAR HEMOGLOBIN 27.8 pg (28-32); MEAN CORPUSCULAR HGB CONC 30.2 g/dL (31-35); MEAN CORPUSCULAR VOLUME 91.9 fL (81-99); MONOCYTES # (AUTO) 0.7 (0.2-0.8); MONOCYTES % 8.5 % (4.4-11.3); NEUTROPHILS # (AUTO) 6.2 (2.1-6.9); NEUTROPHILS % 76.9 % (38.7-80.0); PLATELET COUNT 181 x10e3/uL (140-360); RED BLOOD COUNT 4.07 x10e6/uL (4.3-5.7); RED CELL DISTRIBUTION WIDTH 14.6 % (11.7-14.4)
[2022-07-07 06:51] LABS: ANION GAP 13.4 mmol/L (8-16); CALCIUM 8.2 mg/dL (8.4-10.2); CREATININE, SERUM 1.68 mg/dL (0.72-1.25); POTASSIUM 3.4 mmol/L (3.5-5.1)
[2022-07-07] MEDS: INSULIN LISPRO 100 UNIT/1 ML 3ML VIAL SQ SCH ×4 (07:30→21:38)
[2022-07-07] MEDS: METOPROLOL SUCCINATE 25 MG TAB XL PO SCH ×2 (08:50→16:52)
[2022-07-07] MEDS: NIFEDIPINE CR 30 MG TAB PO SCH (08:50)
[2022-07-07] MEDS: HYDRALAZINE HCL 25 MG TAB PO SCH (08:52)
[2022-07-07] MEDS: DOCUSATE SODIUM 100 MG CAP PO SCH ×2 (08:52→16:52)
[2022-07-07] MEDS ORDERED: ONDANSETRON HCL 4 MG ORAL DISINTEGRATING TAB PO PRN (11:30)
[2022-07-07] MEDS: HYDRALAZINE HCL 20 MG/ML VIAL IV PRN ×2 (11:54→18:32)
[2022-07-07] MEDS ORDERED: POTASSIUM CHLORIDE 20 MEQ TAB CR PO ONE (13:33)
[2022-07-07] MEDS: HYDRALAZINE HCL 100 MG TABLET PO SCH ×2 (15:26→21:33)
[2022-07-07] MEDS: MELATONIN 5 MG TABLET PO SCH (21:35)
[2022-07-08] MEDS: IPRATROPIUM BROMIDE 0.02% 2.5 ML NEB NEB SCH ×2 (01:47→06:43)
[2022-07-08 03:04] VITALS: BP 151/69
[2022-07-08 04:00] VITALS: BP 189/91
[2022-07-08] MEDS: HYDRALAZINE HCL 20 MG/ML VIAL IV PRN (06:26)
[2022-07-08 08:10] VITALS: BP 150/70
[2022-07-08 08:16] VITALS: BP 150/70
[2022-07-08] MEDS: INSULIN LISPRO 100 UNIT/1 ML 3ML VIAL SQ SCH ×2 (08:50→11:30)
[2022-07-08] MEDS: NIFEDIPINE CR 30 MG TAB PO SCH (08:56)
[2022-07-08] MEDS: DOCUSATE SODIUM 100 MG CAP PO SCH (08:57)
[2022-07-08] MEDS: METOPROLOL SUCCINATE 25 MG TAB XL PO SCH (08:57)
[2022-07-08] MEDS: HYDRALAZINE HCL 100 MG TABLET PO SCH ×2 (08:57→14:42)
[2022-07-08 11:32] VITALS: BP 169/68
[2022-07-08 12:27] VITALS: BP 158/62
== END 2022-07-08 16:23 | disposition home health service (06) | DRG 656 ==
LOC: OR 10:28 → PACU V 13:29 → ICU 18:20 → MED/SURG 07-04 16:22
PROVIDERS: ADMIT Internal Medicine; ATTEND Internal Medicine
PROC: 0W9B00Z Drainage of Left Pleural Cavity with Drainage Device, Open Approach (ICD-10-PCS; 2022-06-30)
PROC: 0T788ZZ Dilation of Bilateral Ureters, Via Natural or Artificial Opening Endoscopic (ICD-10-PCS; 2022-06-30)
PROC: BT1F1ZZ Fluoroscopy of Left Kidney, Ureter and Bladder using Low Osmolar Contrast (ICD-10-PCS; 2022-06-30)
PROC: 0TT10ZZ Resection of Left Kidney, Open Approach (ICD-10-PCS; 2022-06-30 13:19)
PROC: 02HV33Z Insertion of Infusion Device into Superior Vena Cava, Percutaneous Approach (ICD-10-PCS; principal; 2022-07-01)
DX: C64.2 Malignant neoplasm of left kidney, except renal pelvis (principal); N17.0 Acute kidney failure with tubular necrosis; E23.0 Hypopituitarism; N39.0 Urinary tract infection, site not specified; Z16.12 Extended spectrum beta lactamase (ESBL) resistance; I16.0 Hypertensive urgency; E87.8 Other disorders of electrolyte and fluid balance, not elsewhere classified; D64.9 Anemia, unspecified; I73.9 Peripheral vascular disease, unspecified; E87.6 Hypokalemia; R31.0 Gross hematuria; N40.1 Benign prostatic hyperplasia with lower urinary tract symptoms; R35.1 Nocturia; E11.69 Type 2 diabetes mellitus with other specified complication; E11.51 Type 2 diabetes mellitus with diabetic peripheral angiopathy without gangrene; I89.0 Lymphedema, not elsewhere classified; Z86.73 Personal history of transient ischemic attack (TIA), and cerebral infarction without residual deficits; E78.5 Hyperlipidemia, unspecified; R33.9 Retention of urine, unspecified; R39.14 Feeling of incomplete bladder emptying; N32.81 Overactive bladder; N31.9 Neuromuscular dysfunction of bladder, unspecified; Z68.38 Body mass index [BMI] 38.0-38.9, adult; E66.01 Morbid (severe) obesity due to excess calories; I12.9 Hypertensive chronic kidney disease with stage 1 through stage 4 chronic kidney disease, or unspecified chronic kidney disease; N18.9 Chronic kidney disease, unspecified; B96.89 Other specified bacterial agents as the cause of diseases classified elsewhere
CPT/HCPCS: 0223U; 36415; 36569; 71045; 71046; 74420; 80048; 80053; 81001; 81015; 81050; 82570; 82948; 83735; 84156; 85025; 85730; 86850; 86900; 87086; 87186; 88304; 88307; 88342; 93005; 94640; 94799; 96372; 99252; C1769; J0360; J0690; J1100; J2001; J2185; J2270; J2370; J2405; J2710; J3010; J3480; J7030; J7050